=== PATIENT | female | born 1995 | race African-American/Black ===

== ENCOUNTER 2016-11-29 16:55 | Emergency (ER) | payer SELFPAY ==
[~2016-11-29] VITALS: Ht 162.6 cm; Wt 50.0 kg
[2016-11-29] MEDS ORDERED: ACETAMINOPHEN 325MG TABLET PO ONE (17:45)
[2016-11-29] MEDS ORDERED: LIDOCAINE/EPINEPHR/TETRACAINE 3ML TP ONE (18:15)
[2016-11-29] MEDS ORDERED: BACITRACIN ZINC OINT UDPKT TOP ONE (18:15)
[2016-11-29] MEDS ORDERED: TETANUS, DIPHTHERIA, PERTUSSIS VAC/PF 0.5ML (>7YR OLD) IM ONE (18:15)
[2016-11-29 20:19] LABS: HCG SCREEN NEGATIVE
[2016-11-29] MEDS ORDERED: MORPHINE SULFATE 10 MG/ML CPJ IM ONE (21:15)
[2016-11-29] MEDS ORDERED: ONDANSETRON HCL 4MG/2ML VIAL IM ONE (21:15)
[2016-11-29 21:40] VITALS: BP 119/65
[2016-11-30] MEDS ORDERED: HYDROCODONE/ACETAMINOPHEN 5/325MG TABLET PO ONE (00:30)
== END 2016-11-30 00:43 | disposition home or self-care (01) ==
LOC: ER 16:55
DX: S01.411A Laceration without foreign body of right cheek and temporomandibular area, initial encounter (principal); S02.40CA Maxillary fracture, right side, initial encounter for closed fracture; V43.52XA Car driver injured in collision with other type car in traffic accident, initial encounter; Y93.89 Activity, other specified; Y92.414 Local residential or business street as the place of occurrence of the external cause
CPT/HCPCS: 12013; 70450; 70486; 72125; 84703; 90471; 90715; 96372; 99285; J2270; J2405; X7700; Z7610

== ENCOUNTER 2016-12-03 14:34 | Emergency (ER) | payer MEDICAID ==
[~2016-12-03] VITALS: Ht 160 cm; Wt 47.0 kg
[2016-12-03] MEDS ORDERED: BACITRACIN ZINC OINT UDPKT TOP ONE (19:00)
[2016-12-03] MEDS ORDERED: KETOROLAC 30MG/ML VIAL IM ONE (19:00)
[2016-12-03 19:59] VITALS: BP 122/79
== END 2016-12-03 20:01 | disposition home or self-care (01) ==
LOC: ER 18:07
DX: Z48.01 Encounter for change or removal of surgical wound dressing (principal)
CPT/HCPCS: 81025; 96372; 99283; J1885; Z7610

== ENCOUNTER 2016-12-06 14:02 | Emergency (ER) | payer MEDICAID ==
[~2016-12-06] VITALS: Ht 152.4 cm; Wt 51.0 kg
[2016-12-06 16:00] VITALS: BP 105/70
== END 2016-12-06 16:07 | disposition home or self-care (01) ==
LOC: ER 14:45
DX: Z48.02 Encounter for removal of sutures (principal)
CPT/HCPCS: 99283; X7700; Z7610